=== PATIENT | female | born 1995 | race Caucasian/White ===

== ENCOUNTER → 2022-04-07 01:48 | Outpatient (CLI) | payer BC, SELFPAY ==
--- NOTE | 2022-04-07 14:00 | DI.RAD_ITS ---
Exam(s) XR FOOT RT COMPLETE EXAM: XR FOOT RT COMPLETE CLINICAL HISTORY: MASS OF RT FOOT JT, M25.871, DORSAL RT FOREFOOT BONE MASS TECHNIQUE: COMPARISON: No exams were available for comparison FINDINGS: Three views were obtained. No bony or soft tissue abnormality seen. If there is a clinical suspicio n of a soft tissue or bony mass, additional evaluation withMRI may be obtained. IMPRESSION: RADIATION DOSE DELIVERED: Total DLP
== END ==
PROVIDERS: Visit Provider Internal Medicine
DX: M25.871 Other specified joint disorders, right ankle and foot; R22.41 Localized swelling, mass and lump, right lower limb
CPT/HCPCS: 73630

== ENCOUNTER 2022-04-19 08:14 | Outpatient (REF) | payer BC, SELFPAY ==
--- NOTE | 2022-04-19 07:40 | PAPFT_PTH ---
PATIENT: Elida Harris LOC: [facility] U#:[id number] AGE/SX: 26/F ROOM: RE04/19/[address]: Kamilla Ren : 1995 BED: DIS: 04/19/2022 SPEC #: [id number] RECD: 04/19/22 18:05 STATUS: ISABEL REUmu #: [id number] MARI: 04/19/22 07:[address]: Kamilla Ren DEPT: [facility] Cytology RECD BY: Manju Purcell ENTERED: 04/19/22 18:06 SP TYPE: PAPFT LIZETTE DR: Vivien Clement Tissues: 1 - CX/ENDOCX FOR PAP SMEARS Procedures: PAP THIN PREP/[facility] Screening HPV DNA PROBE Comments: [id number]
== END 2022-04-19 08:15 | disposition home or self-care (01) ==
LOC: NCHCN 08:14
PROVIDERS: PCP Family Medicine; Visit Provider Nurse Practitioner Family
DX: Z12.4 Encounter for screening for malignant neoplasm of cervix (principal); Z11.51 Encounter for screening for human papillomavirus (HPV); Z01.419 Encounter for gynecological examination (general) (routine) without abnormal findings
CPT/HCPCS: 88142; 87624

== ENCOUNTER 2024-05-21 14:50 | Outpatient (REF) | payer BC, SELFPAY | END 2024-05-21 14:51 | disposition home or self-care (01) | LOC: LBN 14:50 | PROVIDERS: PCP Family Medicine; Visit Provider Nurse Practitioner Family | DX: J02.9 Acute pharyngitis, unspecified (principal); R68.89 Other general symptoms and signs; J06.9 Acute upper respiratory infection, unspecified | CPT/HCPCS: 87070 ==

== ENCOUNTER 2024-05-23 16:26 | Outpatient (REF) | payer BC, SELFPAY | END 2024-05-23 16:27 | disposition home or self-care (01) | LOC: LBN 16:26 | PROVIDERS: PCP Family Medicine; Visit Provider Nurse Practitioner Family | DX: J02.9 Acute pharyngitis, unspecified (principal) | CPT/HCPCS: 87070 ==